=== PATIENT | male | born 1930 | race Caucasian/White ===

== ENCOUNTER 2016-11-25 09:25 | Day surgery (SDC) | payer MEDICARE, OTHER ==
[~2016-11-25] VITALS: Ht 175.3 cm; Wt 102.1 kg
--- NOTE | ~2016-11-25 | OP ---
PATIENT NAME: GOPI DIAZ MEDICAL RECORD: [id number] :34 LOCATION:D.OPS ADMISSION DATE: SURGEON: AMARILYS KEE MD DATE OF OPERATION: 11/25/2016 PREOPERATIVE DIAGNOSES: 1. Left neck mass. 2. Chronic obstructive pulmonary disease. 3. Tobacco dependence syndrome. POSTOPERATIVE DIAGNOSES: 1. Left neck mass. 2. Chronic obstructive pulmonary disease. 3. Tobacco dependence syndrome. PROCEDURE: Excisional biopsy of left neck mass. SURGEON: Amarilys Kee MD REPORT OF PROCEDURE: An oblique incision was made above on the superior lateral aspect to the left neck overlying a large firm mass. Electrocautery was used to dissect through the subcutaneous tissues and platysma. There is inflammatory type mass that was present adhering to the bottom surface of the platysma and extending down into the neck. There were no named vascular structures in the area as we dissected around this mass that eventually opened up into a pocket where there was clear serous fluid. The inflammatory mass was completely removed revealing a small pocket. There was about 1 x 1 cm in size. This pocket was densely adherent to the surrounding tissues and I made some attempts to get around it, but just could not make out the tissue structure very well. For this reason, I just left it alone. I treated the area with electrocautery. I did not see any evidence of any cancerous lesions present. The wound was then irrigated out thoroughly with normal saline. The platysma and subcutaneous tissues were reapproximated with interrupted 3-0 Vicryls and the skin was closed with running subcutaneous 5-0 Monocryl. The wound was then infused with a total of 10 mL of 0.25% Marcaine with epinephrine and dressed appropriately. COMPLICATIONS: None. CONDITION: Stable. ANESTHESIA: General endotracheal and local. BLOOD LOSS: Minimal. TRANSINT:[id number] Voice Confirmation ID: [id number] DOCUMENT ID: [id number] AMARILYS KEE MD CC: ISAEL KYLE MD [id number] DICTATION DATE: 11/25/16 1346 STRAP SETTER: 11/25/16 1707 [facility] 11/25/16 [facility] [address] [place] [address]
[~2016-11-25 09:25] MED LIST: HYTRIN10 MG PO; SPIRIVA18 MCG INH; SYMBICORT 16010.2 GM INH; VENTOLIN HFA18 GM INH; [UNRECOGNIZED DRUG - OTHER] OR
[2016-11-25 10:37] LABS: BASOPHILS 0.4 % (0.0-2.0); EOSINOPHILS 5.8 % (0-7); HEMATOCRIT 47.7 % (42.0-54.0); HEMOGLOBIN 16.1 g/dL (13.5-17.5); IMMATURE GRANULOCYTES 0.2 % (0-5); LYMPHOCYTES 24.8 % (15-50); MCH 33.9 pg (26.0-34.0); MCHC 33.8 g/dL (31.0-37.0); MCV 100.4 fL (80.0-100.0); MEAN PLATELET VOLUME 10.9 fL (7.4-10.4); MONOCYTES 12.9 % (2-11); NEUTROPHILS 55.9 % (40-80); RBC 4.75 10x6/uL (4.20-6.10); WBC 4.8 10x3/uL (4.8-10.8)
[2016-11-25 10:39] LABS: PLATELET COUNT 113 10x3/uL (130-400)
[2016-11-25 10:45] LABS: ANION GAP 9.8 mmol/L (8-16); CALCIUM 8.7 mg/dL (8.5-10.1); CARBON DIOXIDE 30.9 mmol/L (21.0-32.0); CREATININE - SERUM 1.2 mg/dL (0.6-1.3); POTASSIUM - SERUM 3.7 mmol/L (3.5-5.1)
[2016-11-25 11:53] VITALS: BP 127/65; Ht 175.3 cm; Wt 102.1 kg
[2016-11-25] MEDS ORDERED: HYDROCODONE-APA1 TAB PO (13:41)
[2016-11-26 18:09] LABS: ACID FAST SMEAR Negative (()); AFB SPECIMEN PROCESSING Tissue Grinding (())
[2016-11-29 13:12] LABS: FUNGUS STAIN Final report (())
[2016-12-03 19:10] LABS: AEROBE ID Final report (())
== END 2016-11-25 15:25 | disposition home or self-care (01) ==
LOC: D.OPS 09:25 → D.PAN 11:00 → D.OPS 15:25
PROVIDERS: Anesthesiology; Surgery
DX: C79.89 Secondary malignant neoplasm of other specified sites (principal); J44.9 Chronic obstructive pulmonary disease, unspecified; F17.200 Nicotine dependence, unspecified, uncomplicated

== ENCOUNTER → 2016-12-13 13:37 | Outpatient (CLI) | payer MEDICARE, OTHER ==
[2016-11-25 11:53] VITALS: BMI 33.3
[~2016-12-13 13:37] MED LIST changes: +HYDROCODONE-APA1 TAB PO
== END | disposition home or self-care (01) ==
LOC: D.CT 13:37
DX: C76.0 Malignant neoplasm of head, face and neck (principal)